=== PATIENT | female | born 1980 | race Caucasian/White ===

== ENCOUNTER → 2016-11-26 | Outpatient (CLI) | payer BC ==
[~2016-11-26] MED LIST: MTR600X PO; PRENTAB26 PO
== END ==
LOC: C.PAPS 11:06
PROVIDERS: ATTEND Obstetrics & Gynecology
DX: Z01.419 Encounter for gynecological examination (general) (routine) without abnormal findings (principal)

== ENCOUNTER → 2017-01-06 | Outpatient (CLI) | payer BC ==
--- NOTE | 2017-01-06 16:05 | MAMMOGRAPHY REPORT ---
BILATERAL FIRST EVER DIGITAL SCREENING MAMMOGRAM TOMOSYNTHESIS WITH CAD: 01/06/2017 CLINICAL HISTORY: Routine screening. Baseline exam. TECHNIQUE: Breast tomosynthesis in addition to standard 2D mammography was performed. Current study was also evaluated with a Computer Aided Detection (CAD) system. COMPARISON: No prior exams were available for comparison. BREAST COMPOSITION: The tissue of both breasts is extremely dense, which lowers the sensitivity of m ammography. FINDINGS: There are a few benign coarse, round and punctate microcalcifications scattered and loosely grouped throughout the breasts. No suspicious mass, architectural distortion or cluster of suspicio us microcalcifications is seen. IMPRESSION: ACR BI-RADS CATEGORY 1: NEGATIVE 1. There is no mammographic evidence of malignancy. A 1 year screening mammogram is recommended. 2. Given the extremely dense breasts and strong family history of breast cancer, if the patient's li fetime risk of developing breast cancer is at least 20%, she would qualify for additional screening w ith breast MRI. The patient will receive written notification of the results. Approximately 10% of breast cancers are not detected with mammography. A negative mammographic report should not delay biopsy if a clinically suggestive mass is present. Ivett Yuen M.D. ay/:01/06/2017 13:03:45 Social Science Research Assistant: Selam JONES(Fannie)(Mitchell)(TIMO), [facility] letter sent: Normal 1/2 BI-RADS Code: ACR BI-RADS Category 1: Negative
== END | disposition home or self-care (01) ==
LOC: C.MAMM 10:53
PROVIDERS: ATTEND Obstetrics & Gynecology
DX: Z12.31 Encounter for screening mammogram for malignant neoplasm of breast (principal)

== ENCOUNTER → 2017-05-11 | Outpatient (CLI) | payer BC ==
--- NOTE | 2017-05-11 19:05 | ECHOCARDIOGRAM REPORT ---
*NOTICE TO RECEIVING [employer]Y This information is strictly Confidential and protected under [place] law. [place] law prohibits you from making any further disclosure of this information unless further disclosure is expressly permitted by the written consent of the person to whom it pertains or is authorized by law. A general authorization for the release of medical or other information is not sufficient for this purpose. Hospital accepts no responsibility if the information is made available to any other person, INCLUDING THE PATIENT. Interpretation Summary * Name: SORAIDA CHAN Study Date: 05/11/2017 01:36 PM BP: 120/78 mmHg * Patient Location: [facility] HR: 68 * : 1980 (M/d/yyyy) Gender: Female Height: 63 in * Age: 37 yrs Ethnicity: [place] Weight: 125 lb * Ordering Physician: SHELLI Godoy. * Referring Physician: SHELLI Godoy. * Performed By: Karlie Arnett RDCS * * Reason For Study: ATYPICAL CHEST PAIN * BSA: 1.6 m2 * -- Conclusions -- * 1. Normal left ventricular size and systolic function. EF 60-65%. No regional wall motion abnormalities. No left ventricular hypertrophy. No significant diastolic dysfunction. * 2. No significant valvular abnormalities visualized. * 3. Normal estimated right ventricular systolic pressure. * 4. No prior study available for comparison. Procedure Details * A complete two-dimensional transthoracic echocardiogram was performed (2D, M-mode, Doppler and color flow Doppler). Left Ventricle * Normal left ventricular size and systolic function. EF 60-65%. No regional wall motion abnormalities. No left ventricular hypertrophy. No significant diastolic dysfunction. Right Ventricle * The right ventricle is normal in size and function. * The right ventricular systolic function is normal as assessed by tricuspid annular plane systolic excursion (TAPSE) (normal >1.5 cm). Atria * The left atrial size is normal. * Right atrial size is normal. * There is no evidence of atrial septal defect, but resolution does not allow assessment for a patent foramen ovale. Mitral Valve * The mitral valve leaflets appear normal. There is no evidence of stenosis, fluttering, or prolapse. * There is trace mitral regurgitation. Tricuspid Valve * The tricuspid valve is not well visualized, but is grossly normal. * There is no tricuspid stenosis. * There is mild tricuspid regurgitation. Aortic Valve * The aortic valve is trileaflet. * No hemodynamically significant valvular aortic stenosis. * No aortic regurgitation is present. Pulmonic Valve * The pulmonary valve is inadequately visualized, but the Doppler data is adequate for interpretation. * There is no pulmonic valvular stenosis. * There is no significant pulmonary regurgitation. Great Vessels * The aortic root is normal size. * Aortic arch of normal dimension. Pericardium/Pleural * There is no pericardial effusion. Great Vessels * Normal inferior vena cava size and collapsability with sniff indicates a normal right atrial pressure of 3 mmHg MMode 2D Measurements and Calculations IVSd 0.69 cm IVSs 1.3 cm LVIDd 4.1 cm LVIDs 2.5 cm LVPWd 0.87 cm LVPWs 1.2 cm IVS/LVPW 0.80 FS 40.7 % EDV(Teich) 76.2 ml ESV(Teich) 21.4 ml EF(Teich) 71.9 % EDV(cubed) 71.3 ml ESV(cubed) 14.9 ml EF(cubed) 79.1 % % IVS thick 90.1 % % LVPW thick 35.0 % LV mass(C)d 96.1 grams LV mass(C)dI 60.7 grams/m\S\2 LV mass(C)s 89.2 grams LV mass(C)sI 56.3 grams/m\S\2 SV(Teich) 54.8 ml SI(Teich) 34.6 ml/m\S\2 SV(cubed) 56.4 ml SI(cubed) 35.6 ml/m\S\2 Ao root diam 2.9 cm Ao root area 6.4 cm\S\2 LA dimension 2.6 cm asc Aorta Diam 2.5 cm LA/Ao 0.90 LVAd ap4 26.9 cm\S\2 LVLd ap4 8.2 cm EDV(MOD-sp4) 74.0 ml EDV(sp4-el) 74.6 ml LVAs ap4 14.6 cm\S\2 LVLs ap4 6.6 cm ESV(MOD-sp4) 29.0 ml ESV(sp4-el) 27.5 ml EF(MOD-sp4) 60.8 % EF(sp4-el) 63.1 % LVAd ap2 27.9 cm\S\2 LVLd ap2 8.4 cm EDV(MOD-sp2) 79.5 ml EDV(sp2-el) 78.8 ml LVAs ap2 14.9 cm\S\2 LVLs ap2 7.2 cm ESV(MOD-sp2) 27.4 ml ESV(sp2-el) 26.2 ml EF(MOD-sp2) 65.5 % EF(sp2-el) 66.8 % LVLd %diff 2.0 % EDV(MOD-bp) 76.4 ml LVLs %diff 8.2 % ESV(MOD-bp) 29.3 ml EF(MOD-bp) 61.6 % SV(MOD-sp4) 45.0 ml SI(MOD-sp4) 28.4 ml/m\S\2 SV(MOD-sp2) 52.1 ml SI(MOD-sp2) 32.9 ml/m\S\2 SV(MOD-bp) 47.1 ml SI(MOD-bp) 29.7 ml/m\S\2 SV(sp4-el) 47.1 ml SI(sp4-el) 29.7 ml/m\S\2 SV(sp2-el) 52.6 ml SI(sp2-el) 33.2 ml/m\S\2 Doppler Measurements and Calculations MV E max frank 128.1 cm/sec MV A max frank 69.2 cm/sec MV E/A 1.9 MV dec time 0.20 sec Ao V2 max 141.3 cm/sec Ao max PG 8.0 mmHg Ao max PG (full) 1.8 mmHg LV V1 max PG 6.2 mmHg LV V1 max 124.0 cm/sec TR max frank 251.5 cm/sec RVSP(TR) 28.3 mmHg RAP systole 3.0 mmHg
== END | disposition home or self-care (01) ==
LOC: C.CPL 13:31
PROVIDERS: ATTEND Internal Medicine
DX: R01.1 Cardiac murmur, unspecified (principal); R07.89 Other chest pain; Z82.49 Family history of ischemic heart disease and other diseases of the circulatory system; Z31.9 Encounter for procreative management, unspecified

== ENCOUNTER → 2017-06-23 | Outpatient (CLI) | payer OTHER | END | disposition home or self-care (01) | LOC: C.LABSPEC 16:22 | PROVIDERS: ATTEND Obstetrics & Gynecology | DX: O09.521 Supervision of elderly multigravida, first trimester (principal) ==

== ENCOUNTER → 2017-07-02 | Outpatient (CLI) | payer OTHER ==
[2017-07-02 16:36] LABS: BASO % 0.3 %; BASO ABS # 0.03 K/uL (0-0.2); EOS % 1.7 %; EOS ABS # 0.19 K/uL (0-0.5); HEMATOCRIT 36.5 % (37-47); IG# 0.03 K/uL (0.00-0.02); LYMPH % 23.8 %; LYMPH ABS # 2.69 K/uL (1.2-3.4); MEAN CELL VOLUME 90.1 fL (80-100); MEAN CORPUSCULAR HEMOGLOBIN 32.1 pg (25-34); MEAN CORPUSCULAR HGB CONC 35.6 g/dl (32-36); MEAN PLATELET VOLUME 11.7 fL (7.4-10.4); MONO % 5.9 %; MONO ABS # 0.67 K/uL (0.11-0.59); NEUT ABS # 7.68 K/uL (1.4-6.5); PLATELET COUNT 212 K/uL (130-400); RED CELL DISTRIBUTION WIDTH CV 12.3 % (11.5-14.5); RED CELL DISTRIBUTION WIDTH SD 40.4 fL (36.4-46.3); WHITE BLOOD COUNT 11.29 K/uL (4.8-10.8)
== END | disposition home or self-care (01) ==
LOC: C.LAB1850 14:55
PROVIDERS: ATTEND Obstetrics & Gynecology
DX: O09.521 Supervision of elderly multigravida, first trimester (principal); Z3A.00 Weeks of gestation of pregnancy not specified

== ENCOUNTER → 2017-07-06 | Outpatient (CLI) | payer OTHER | END | disposition home or self-care (01) | LOC: C.LAB1850 11:20 | PROVIDERS: ATTEND Obstetrics & Gynecology | DX: Z87.59 Personal history of other complications of pregnancy, childbirth and the puerperium (principal) ==

== ENCOUNTER → 2017-07-07 | Outpatient (CLI) | payer OTHER | END | disposition home or self-care (01) | LOC: C.LAB1850 14:47 | PROVIDERS: ATTEND Obstetrics & Gynecology | DX: R79.9 Abnormal finding of blood chemistry, unspecified (principal) ==

== ENCOUNTER → 2017-08-21 | Outpatient (CLI) | payer OTHER | END | disposition home or self-care (01) | LOC: C.LAB1850 16:08 | PROVIDERS: ATTEND Obstetrics & Gynecology | DX: O09.522 Supervision of elderly multigravida, second trimester (principal); R79.9 Abnormal finding of blood chemistry, unspecified ==

== ENCOUNTER → 2017-09-07 | Outpatient (CLI) | payer OTHER | END | disposition home or self-care (01) | LOC: C.LAB1850 07:22 | PROVIDERS: ATTEND Obstetrics & Gynecology | DX: O28.1 Abnormal biochemical finding on antenatal screening of mother (principal) ==

== ENCOUNTER → 2017-09-28 | Outpatient (CLI) | payer OTHER | END | disposition home or self-care (01) | LOC: C.LAB1850 09:47 | PROVIDERS: ATTEND Obstetrics & Gynecology | DX: R79.9 Abnormal finding of blood chemistry, unspecified (principal) ==

== ENCOUNTER → 2017-10-26 | Outpatient (CLI) | payer OTHER | END | disposition home or self-care (01) | LOC: C.LAB1850 13:36 | PROVIDERS: ATTEND Obstetrics & Gynecology | DX: R79.9 Abnormal finding of blood chemistry, unspecified (principal) ==

== ENCOUNTER → 2017-12-31 | Outpatient (CLI) | payer OTHER | END | disposition home or self-care (01) | LOC: C.LABSPEC 16:49 | PROVIDERS: ATTEND Obstetrics & Gynecology | DX: O09.523 Supervision of elderly multigravida, third trimester (principal) ==

== ENCOUNTER → 2018-01-07 | Outpatient (CLI) | payer OTHER | END | disposition home or self-care (01) | LOC: C.LAB1850 13:52 | PROVIDERS: ATTEND Obstetrics & Gynecology | DX: R79.9 Abnormal finding of blood chemistry, unspecified (principal) ==

== ENCOUNTER 2018-01-24 19:06 | Inpatient (IN) | payer OTHER ==
[~2018-01-24] VITALS: Ht 160 cm; Wt 71.8 kg
[2018-01-24] MEDS ORDERED: LACTATED RINGER'S 1000ML 1,000 ML IV PRN (20:22)
[2018-01-24] MEDS ORDERED: LACTATED RINGER'S 1000ML 1,000 ML IV ONE (20:22)
[2018-01-24] MEDS ORDERED: LACTATED RINGER'S 1000ML 1,000 ML IV SCH (20:22)
[2018-01-24 20:32] VITALS: Ht 160 cm; Wt 71.8 kg
[2018-01-24] MEDS ORDERED: CITRIC ACID/SODIUM CITRATE 15 ML UDC PO ONE (20:45)
[2018-01-24] MEDS ORDERED: CEFAZOLIN IV 2,000 MG in SYRINGE 0 ML IV SCH (21:00)
[2018-01-24] MEDS ORDERED: MoRPHine SULFATE PF 1 MG/ML 10 ML AMP/VIAL ONE (21:00)
[2018-01-24 21:02] LABS: BASO % 0.3 %; BASO ABS # 0.04 K/uL (0-0.2); EOS % 0.7 %; HEMATOCRIT 36.8 % (37-47); HEMOGLOBIN 12.7 g/dL (12.0-16.0); IG# 0.08 K/uL (0.00-0.02); LYMPH % 23.6 %; LYMPH ABS # 3.31 K/uL (1.2-3.4); MEAN CELL VOLUME 88.2 fL (80-100); MEAN CORPUSCULAR HEMOGLOBIN 30.5 pg (25-34); MEAN PLATELET VOLUME 12.5 fL (7.4-10.4); MONO % 5.3 %; MONO ABS # 0.74 K/uL (0.11-0.59); NEUT % 69.5 %; NEUT ABS # 9.75 K/uL (1.4-6.5); PLATELET COUNT 188 K/uL (130-400); RED CELL DISTRIBUTION WIDTH CV 13.5 % (11.5-14.5); RED CELL DISTRIBUTION WIDTH SD 43.5 fL (36.4-46.3); WHITE BLOOD COUNT 14.02 K/uL (4.8-10.8)
[2018-01-24 21:03] LABS: MEAN CORPUSCULAR HGB CONC 34.5 g/dl (32-36)
--- NOTE | 2018-01-24 21:09 | HISTORY & PHYSICAL EXAMINATION ---
DATE OF ADMISSION: 01/24/2018 ADMITTING DIAGNOSES: 1. Term . 2. Previous section. 3. Premature spontaneous rupture of membranes. ADMISSION HISTORY: The patient is a 37-year-old 3, para 1, with an EDC of January 23 by first trimester ultrasound, who is admitted at 40+ weeks gestational age with spontaneous rupture of membranes. Patient states membranes ruptured at approximately 1800 hours on day of delivery with subsequent onset of contractions. Patient denied vaginal bleeding. Patient's previous was a section for a nonreassuring heart rate tracing. Patient was being induced for gestational hypertension. Patient had been considering a during this , and a consent had been signed. was also remarkable for an anti-M antibody titer that was found on her initial OB visit. The patient was followed with monthly titers, which were nonexistent. Laboratory values for this show the following: She had a blood type of A positive, antibody positive as described above, hepatitis B negative, rubella immune. She had an elevated 1-hour Glucola at 16 weeks with normal glucose tolerance test at both 16 and 28 weeks. She had negative cell free DNA screening, a negative maternal serum AFP, and a negative third trimester beta strep culture. PAST MEDICAL HISTORY: OBSTETRICAL: As above. MEDICAL: None. SURGICAL: [place] teeth extraction. ALLERGIES: No known drug allergies. SOCIAL HISTORY: No smoking. FAMILY HISTORY: Noncontributory. REVIEW OF SYSTEMS: As per HPI. ADMISSION PHYSICAL EXAMINATION: GENERAL: Exam shows a gravid female, uncomfortable but in no acute distress. VITAL SIGNS: Blood pressure 150/90. Weight of 158. HEENT: Unremarkable. NECK: Supple. LUNGS: Clear. CARDIOVASCULAR: Heart with a regular rhythm and rate. GASTROINTESTINAL: Abdomen is gravid, vertex, positive heart tones, estimated weight of 7-1/2 pounds. PELVIC: Examination shows the cervix to be fingertip dilated, 90% effaced, -2 station, with gross rupture of membranes. EXTREMITIES: Examination shows no deep calf tenderness. NEUROLOGIC: Grossly intact. IMPRESSION: A 37-year-old 3, para 1 at 40+ weeks gestational age, previous section with spontaneous rupture of membranes. PLAN: Tracing is category 2 with moderate variability and accelerations. While the patient is sally every 3 minutes, she is remote from delivery. We have discussed options at this point including observation with possible augmentation of labor as needed. The patient is very reluctant to have any type of augmentation because of her previous experience with nonreassuring heart rate tracing. After discussing all the pros and cons with the patient, I have suggested and recommended a repeat low cervical transverse section. The risks, benefits, and alternatives to that surgery have been discussed. While the benefits will be delivery of the , the risks are bleeding, infection, inadvertent injury to bowel or bladder, blood clots in the leg with pulmonary embolism, readmission, reoperation. Patient understands this. The permit has been signed, and she wishes to proceed.
[2018-01-24 21:11] LABS: PTT PATIENT 23.8 SECONDS (21.0-31.0)
[2018-01-24] MEDS ORDERED: SODIUM CHLORIDE 0.9% 1000ML 1,000 ML IV PRN (21:11)
[2018-01-24] MEDS ORDERED: NALOXONE HCL INJ 0.08 MG in SYRINGE 1.8 ML IV PRN (21:11)
[2018-01-24] MEDS ORDERED: NALOXONE HCL INJ 1 MG in SODIUM CHLORIDE 0.9% 1000ML 1,000 ML IV PRN ×4 (21:11)
[2018-01-24] MEDS ORDERED: LACTATED RINGER'S 1000ML 500 ML IV PRN (21:11)
[2018-01-24] MEDS ORDERED: MoRPHine SULFATE PF 1 MG/ML 10 ML AMP/VIAL EPI PRN (21:15)
[2018-01-24] MEDS ORDERED: NO NARCOTICS OR SEDATIVES SCH (21:15)
[2018-01-24] MEDS ORDERED: PHENYLEPHRINE 100MCG/ML 5ML SYR IV PRN (21:15)
[2018-01-24] MEDS ORDERED: DiphenhydrAMINE HCL 50 MG/ML VIAL IV PRN (21:15)
[2018-01-24] MEDS ORDERED: ATROPINE SULFATE 0.1 MG/ML 5ML SYR IV PRN (21:15)
[2018-01-24] MEDS ORDERED: ONDANSETRON INJ 2 MG/ML 2 ML VIAL IV PRN ×2 (21:15)
[2018-01-24] MEDS ORDERED: NALBUPHINE HCL INJ 10 MG/ML 1ML AMP IV PRN (21:15)
[2018-01-24] MEDS ORDERED: PROMETHAZINE HCL INJ 12.5 MG in SODIUM CHLORIDE 0.9% 50ML 50 ML IV PRN ×4 (21:15)
[2018-01-24] MEDS ORDERED: MEPERIDINE HCL 25 MG/ML CARP IV PRN ×2 (21:15)
[2018-01-24] MEDS ORDERED: NALOXONE HCL 0.4 MG/1 ML VIAL/CARP IV PRN (21:15)
[2018-01-24] MEDS ORDERED: EpHEDrine SULFATE INJ 50 MG/ML AMP IV PRN ×2 (21:15)
[2018-01-24] MEDS ORDERED: KETOROLAC TROMETHAMINE 30 MG/ML VIAL IV. PRN ×2 (21:15)
[2018-01-24 21:31] LABS: ALBUMIN 2.7 gm/dl (3.4-5.0); ALKALINE PHOSPHATASE 190 U/L (45-117); ALT/SGPT 14 U/L (12-78); AST/SGOT 20 U/L (15-37); CREATININE 0.76 mg/dl (0.60-1.20); URIC ACID 7.2 mg/dl (2.6-7.2)
[2018-01-24] MEDS ORDERED: ONDANSETRON INJ 2 MG/ML 2 ML VIAL ONE (22:02)
[2018-01-24] MEDS ORDERED: METOCLOPRAMIDE HCL INJ 5 MG/ML 2 ML VIAL ONE (22:02)
[2018-01-24] MEDS ORDERED: OXYTOCIN INJ 10 UNITS/ML VIAL ONE ×3 (22:02→22:19)
[2018-01-24] MEDS ORDERED: PROPOFOL IV EMULSION 10 MG/ML 20 ML VIAL ONE (22:02)
[2018-01-24] MEDS ORDERED: SUCCINYLCHOLINE CHLORIDE 20 MG/ML 10 ML VIAL IV ONE (22:02)
[2018-01-24] MEDS ORDERED: EpHEDrine SULFATE 50MG/5ML SYR ONE (22:02)
--- NOTE | 2018-01-24 22:21 | [facility] Post Operative Brief Note ---
Immediate Operative Summary Operative Date Jan 24, 2018. 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
[2018-01-24] MEDS ORDERED: LANOLIN OINT EXT PRN (22:30)
[2018-01-24] MEDS ORDERED: SUPERCREAM 0.870 % 15GM JAR EXT PRN (22:30)
[2018-01-24] MEDS ORDERED: HYDROCORTISONE ACETATE 25 MG SUPP PR PRN (22:30)
[2018-01-24] MEDS ORDERED: BENZOCAINE 20% AER SPR 82.5 GM CAN EXT PRN (22:30)
--- NOTE | 2018-01-24 22:45 | OPERATIVE REPORT ---
DATE OF OPERATION: 01/24/2018 PREOPERATIVE DIAGNOSES: 1. Term . 2. Previous section. 3. Premature rupture of membranes. POSTOPERATIVE DIAGNOSES: 1. Term . 2. Previous section. 3. Premature rupture of membranes. PROCEDURE PERFORMED: Repeat low cervical transverse section. SURGEON: Krystian Ovalle MD ANESTHESIA: Spinal. FINDINGS: Viable female infant with Apgars of 8 and 9, weight of 8 pounds 10 ounces. Arterial and venous cord gases are pending. Normal-appearing tubes and ovaries bilaterally. PROCEDURE IN DETAIL: The patient was taken to the operating room and after spinal anesthesia, he was placed in supine position and draped and prepped in the usual fashion. Pfannenstiel-type incision through previous surgical scar was made. Underlying subcutaneous tissue was dissected down to the ventral abdominal fascia, which was nicked and opened in a horizontal manner. Preperitoneal fascia was dissected away until the peritoneal cavity was entered and opened in a vertical manner. Bladder blade was placed. The peritoneum overlying the uterus was elevated, opened in a semi-lunar fashion, the inferior margin of which was taken down creating the bladder flap. The uterus was entered sharply and extended in a manual fashion. A viable female infant with description as above was delivered. Cord was clamped and cut and passed off to pediatrics who was in attendance for the delivery. Cord gases, cord blood samples were obtained. The placenta was delivered spontaneously. The uterus was exteriorized and the uterine cavity was wiped clean of any residual blood tissue and/or clot. The uterine incision was then closed with 2 layers of 4-0 Vicryl, the first a running locking stitch, the second an imbricating stitch. Hemostasis achieved. The uterus was returned to the pelvic cavity. Pericolic gutters were cleared bilaterally of any blood tissue and/or clot. Inspection of the uterine incision showed hemostasis. Sponge and needle count were correct. The rectus muscle was then plicated in the midline with a running 2-0 Vicryl stitch. The fascia was closed laterally with a running 0 Vicryl suture. The subcutaneous tissue was irrigated with warm saline and the skin incision was closed with a 4-0 Monocryl subcuticular suture. Sterile dressing was applied. The patient was taken to the recovery room in satisfactory condition. I attest to the content of the Intraoperative Record and any orders documented therein. Any exception s are noted below.
[2018-01-25] VITALS (18 sets, daily range): BP systolic 131–152; BP diastolic 79–93; PULSE 60–80; TEMP 36.6–36.9; O2SAT 95–98
[2018-01-25] MEDS: OXYTOCIN INJ 20 UNITS in LACTATED RINGER'S 1000ML 1,000 ML IV SCH ×2 (01:21→09:40)
[2018-01-25] MEDS ORDERED: CEFAZOLIN IV 2,000 MG in DEXTROSE 5% 50ML 50 ML IV SCH (06:00)
--- NOTE | 2018-01-25 06:55 | Progress Note ---
Subjective Jan 25, 2018. Subjective conversation w/ patient, physical exam Ambulation: ambulating normally Voiding: underwood catheter in place Passing Gas: Yes Diet Tolerance: Clear Liquids (has not recieved any yet. no n/v) Lochia: Small Feeding Type: Breast Feeding Pain: 2/10, improving Review of Systems Constitutional: No fever, No chills, No sweats Respiratory: No cough, No sputum, No wheezing Cardiac: No chest pain, No palpitations Abdomen: No pain, No nausea, No vomiting Female : No dysuria Objective Vital Signs Date Time Temp Pulse Resp B/P (MAP) Pulse Ox O2 Delivery O2 Flow Rate FiO2 01/25/18 06:11 14 96 01/25/18 05:46 16 96 01/25/18 04:38 16 95 01/25/18 03:10 36.7 74 16 137/83 (101) 98 Room Air 01/25/18 03:10 16 98 01/25/18 02:10 16 98 01/25/18 02:10 36.7 80 16 145/84 (104) 98 Room Air 01/25/18 01:10 36.9 79 16 152/85 (107) 98 Room Air 01/25/18 01:10 98 Room Air 01/25/18 01:10 16 98 01/25/18 01:10 98 Room Air Physical Exam General Appearance: WELL-APPEARING, NO APPARENT DISTRESS Respiratory/Chest: chest non-tender, normal breath sounds Cardiovascular: regular rate, rhythm, no murmur Abdomen: normal bowel sounds Fundus: Firm, Relation to Umbilicus (below) Incision Description: Clean, Dry & Intact Extremities: non-tender, no calf tenderness Laboratory Results Last 24 Hours Test 01/24/18 20:42 01/25/18 06:43 White Blood Count 14.02 K/uL Red Blood Count 4.17 M/uL Hemoglobin 12.7 g/dL Hematocrit 36.8 % Mean Corpuscular Volume 88.2 fL Mean Corpuscular Hemoglobin 30.5 pg Mean Corpuscular Hemoglobin Concent 34.5 g/dl Platelet Count 188 K/uL Mean Platelet Volume 12.5 fL Neutrophils (%) (Auto) 69.5 % Lymphocytes (%) (Auto) 23.6 % Monocytes (%) (Auto) 5.3 % Eosinophils (%) (Auto) 0.7 % Basophils (%) (Auto) 0.3 % Neutrophils # (Auto) 9.75 K/uL Lymphocytes # (Auto) 3.31 K/uL Monocytes # (Auto) 0.74 K/uL Eosinophils # (Auto) 0.10 K/uL Basophils # (Auto) 0.04 K/uL RDW Standard Deviation 43.5 fL RDW Coefficient of Variation 13.5 % Immature Granulocyte % (Auto) 0.6 % Immature Granulocyte # (Auto) 0.08 K/uL Prothrombin Time 10.2 SECONDS Prothromb Time International Ratio 1.0 Activated Partial Thromboplast Time 23.8 SECONDS Partial Thromboplastin Ratio 0.9 Creatinine 0.76 mg/dl Est Creatinine Clear Calc Drug Dose 94.4 ml/min Estimated GFR () 114.5 Estimated GFR (Non- 98.8 Uric Acid 7.2 mg/dl Total Bilirubin 0.3 mg/dl Direct Bilirubin < 0.1 mg/dl Aspartate Amino Transf (AST/SGOT) 20 U/L Alanine Aminotransferase (ALT/SGPT) 14 U/L Alkaline Phosphatase 190 U/L Total Protein 7.0 gm/dl Albumin 2.7 gm/dl Medications Current Inpatient Medications Medications (Trade) Dose Ordered Sig/[place] Route Start Time Stop Time Status Last Admin Dose Admin Lactated Ringer's 1,000 ml @ 125 mls/hr Q8H IV 01/24/18 20:22 01/26/18 20:21 Lactated Ringer's 1,000 ml @ 999 mls/hr Q1H1M PRN IV 01/24/18 20:22 02/23/18 20:21 Naloxone HCl (Narcan Inj) 0.1 mg UD PRN IV 01/24/18 21:15 01/25/18 14:00 Diphenhydramine HCl (Benadryl Inj) 12.5 mg Q6H PRN IV 01/24/18 21:15 01/25/18 14:00 Nalbuphine HCl (Nubain Inj) 5 mg Q10M PRN IV 01/24/18 21:15 01/25/18 14:00 Naloxone HCl 1 mg/ Sodium Chloride 1,002.5 ml @ 50 mls/hr Q20H3M PRN IV 01/24/18 21:11 01/25/18 14:00 Ondansetron HCl (Zofran Inj) 4 mg Q6H PRN IV 01/24/18 21:15 01/25/18 14:00 Promethazine HCl 12.5 mg/Sodium Chloride 50.5 ml @ 200 mls/hr Q6H PRN IV 01/24/18 21:15 01/25/18 14:00 Naloxone HCl 1 mg/ Sodium Chloride 1,002.5 ml @ 50 mls/hr Q20H3M PRN IV 01/24/18 21:11 01/25/18 14:00 Ketorolac Tromethamine (Toradol Inj) 30 mg Q6H PRN IV. 01/24/18 21:15 01/25/18 14:00 Meperidine HCl (Demerol Inj) 25 mg Q15M PRN IV 01/24/18 21:15 01/25/18 14:00 Miscellaneous Information (Dc Intraspinal Morphine) 1 ea ONE N/A 01/25/18 14:00 01/25/18 14:01 Miscellaneous Information (No Narcotics Or Sedatives) 1 ea UD N/A 01/24/18 21:15 01/25/18 14:00 Naloxone HCl 0.08 mg/Syringe 2 ml @ 1 mls/min Q2M PRN IV 01/24/18 21:11 01/25/18 14:00 Lactated Ringer's 500 ml @ 999 mls/hr Q31M PRN IV 01/24/18 21:11 01/25/18 14:00 Ephedrine Sulfate (EpHEDrine SULFATE INJ) 10 mg Q5M PRN IV 01/24/18 21:15 01/25/18 14:00 Morphine Sulfate (Duramorph Pf Inj) TODAY PRN EPI 01/24/18 21:15 Sodium Chloride 1,000 ml @ 15 mls/hr Q24H PRN IV 01/24/18 21:11 01/25/18 14:00 Oxytocin 20 units/ Lactated Ringer's 1,002 ml @ 125 mls/hr Q8H1M IV 01/24/18 22:21 01/25/18 14:22 01/25/18 01:21 125 MLS/HR Ketorolac Tromethamine (Toradol Inj) 30 mg Q6H PRN IV. 01/25/18 14:00 01/30/18 13:59 Oxycodone/ Acetaminophen (Percocet 5-325mg Tab) 1 tab Q4H PRN PO 01/25/18 14:00 02/08/18 13:59 Oxycodone/ Acetaminophen (Percocet 5-325mg Tab) 2 tab Q4H PRN PO 01/25/18 14:00 02/08/18 13:59 Ibuprofen (Motrin Tab) 600 mg Q4H PRN PO 01/24/18 22:30 02/23/18 22:29 Ondansetron HCl (Zofran Inj) 4 mg Q4H PRN IV 01/25/18 14:00 02/24/18 13:59 Prenat Multivit/ Lovilia/Iron/Folic Ac ( Vitamin Tab) 1 tab DAILY PO 01/25/18 08:00 02/24/18 07:59 Magnesium Hydroxide (Milk Of Magnesia Susp) 30 ml HS PO 01/25/18 22:00 02/24/18 21:59 Diphtheria/ Pertussis/Tetanus Vacc (Adacel Inj) 0.5 ml ONCE ONCE IM. 01/25/18 09:00 01/25/18 09:01 Ferrous Sulfate (Feosol Tab) 325 mg DAILY PO 01/25/18 08:00 02/24/18 07:59 Cocaine HCl (Supercream 0.870% Cr) BID PRN EXT 01/24/18 22:30 02/07/18 22:29 Lanolin (Lanolin Oint) PRN PRN EXT 01/24/18 22:30 02/23/18 22:29 Hydrocortisone Acetate (Anusol Hc Supp) 25 mg BID PRN [place] 01/24/18 22:30 02/23/18 22:29 Benzocaine (Dermoplast Aero Spr) 1 appln PRN PRN EXT 01/24/18 22:30 02/23/18 22:29 Diphenhydramine HCl (Benadryl Cap) 25 mg QID PRN PO 01/25/18 14:00 02/24/18 13:59 Diphenhydramine HCl (Benadryl Inj) 25 mg QID PRN IV 01/25/18 14:00 02/24/18 13:59 Senna (Senokot Tab) 17.2 mg HS PO 01/25/18 22:00 02/24/18 21:59 Assessment and Plan Problem List Medical Problems: (1) PROM (premature rupture of membranes) Status: Acute Post-Op Day#: 1 Continue Routine Care: 37 yo POD1 s/p LTCS -AFVSS, Pt doing well resting comfortably -no si/sx of anemia -Plan is to breast feed -Tolerating regular diet, no n/v -Continue to encourage ambulation -Routine Post-OP Care Resident Physician Supervision Note: I interviewed and examined the patient. Discussed with Dr. Stafford and agree with findings and plan as documented in the note. Any exceptions or clarifications are listed here: Discussed surgery and findings with patient. Routine post-op care. Documented By: Krystian Ovalle Resident Tracking Resident Involvement: Resident Care Provided Care Provided: Adult Hospital Medicine
[2018-01-25 07:24] LABS: HEMATOCRIT 31.7 % (37-47); MEAN CELL VOLUME 86.8 fL (80-100); MEAN CORPUSCULAR HEMOGLOBIN 30.1 pg (25-34); MEAN CORPUSCULAR HGB CONC 34.7 g/dl (32-36); MEAN PLATELET VOLUME 12.5 fL (7.4-10.4); PLATELET COUNT 128 K/uL (130-400); RED CELL DISTRIBUTION WIDTH CV 13.5 % (11.5-14.5); RED CELL DISTRIBUTION WIDTH SD 43.1 fL (36.4-46.3); WHITE BLOOD COUNT 18.41 K/uL (4.8-10.8)
[2018-01-25 07:26] LABS: BASO % 0.1 %; BASO ABS # 0.02 K/uL (0-0.2); EOS % 0.3 %; EOS ABS # 0.05 K/uL (0-0.5); IG# 0.06 K/uL (0.00-0.02); LYMPH % 12.3 %; LYMPH ABS # 2.27 K/uL (1.2-3.4); MONO % 5.4 %; NEUT % 81.6 %; NEUT ABS # 15.01 K/uL (1.4-6.5)
[2018-01-25] MEDS: PRENATAL VITAMIN TAB PO SCH (07:41)
[2018-01-25] MEDS: FERROUS SULFATE 325 MG TAB PO SCH (07:41)
--- NOTE | 2018-01-25 07:42 | Discharge Instructions ---
Discharge Instructions Date of Service Jan 25, 2018. Admission Reason for Admission: Check Rupture Discharge Discharge Diagnosis / Problem: Discharge Goals Goal(s): Routine recovery after Medications Continue Dispensed Medications: supercream, dermaplast, tucks Activity Recommendations Activity Limitations: per Instructions/Follow-up section . Instructions / Follow-Up Instructions / Follow-Up ACTIVITY RECOMMENDATIONS: * Gradual return to full activity over the next 2-3 weeks. * No lifting - nothing heavier than baby over the next 2-3 weeks. * Do not engage in vigorous exercise, sexual activity or sports until cleared by your physician. * Do not drive or operate any motorized equipment until cleared by your physician. * You may shower/bathe daily. MEDICATIONS: For discomfort or pain, you may use Acetaminophen (Tylenol), Ibuprofen (Advil), or Naproxen (Aleve) following the package directions. For constipation you may use Colace following the package directions. BREAST CARE: If you are not breast feeding: * Wear a supportive bra 24 hours a day for one to two weeks. * Avoid stimulating your breasts and nipples as much as possible during the first few weeks after delivery. * When taking a shower, have the warm water hit your back, not breasts. * When your breasts feel full, apply ice packs. Usually three to four times a day helps ease the discomfort. * Take a mild pain medication (Tylenol / Motrin) when you are uncomfortable. If breast feeding: * Use breast milk to lubricate nipples. Lansinoh cream may be used for sore nipples. You do not need to remove cream prior to breast feeding. If using a different brand of cream, check the label for directions regarding removal of cream prior to nursing. * Wear a supportive bra. * If having problems with breasts or breast feeding, call a talent development consultant or your health care provider. SPECIAL CARE INSTRUCTIONS: When you are discharged from the hospital, it is important for you to follow the instructions listed below: * During the first week at home, you should be able to care for yourself and your baby. In addition, the usual light household activities are encouraged. * Limit your activities to the way you feel. Do not try to clean the house or move furniture. Be sensible. * If you actively engage in sports and have done so up until the time of your delivery, you may resume these activities as soon as you feel able. This may take up to one month or even longer. Use good judgment. * Continue to take your vitamins for at least six weeks after the of your baby. * Your diet need not be limited unless you were on a special diet before your delivery. Breast-feeding mothers need around 2500 calories per day and at least 64-80 ounces of fluid per day (8 to 10 glasses). * You should eat foods from the four major food groups. Crash diets or fad diets are to be avoided. Eating lean meats, fresh fruits and vegetables, low-fat dairy products, high fiber foods and a regular exercise program, will help you get back to your pre- weight without putting your health at risk. * Constipation is sometimes a problem after delivery. Take a mild laxative as needed. If breast feeding, Milk of Magnesia is acceptable to use. You may use a suppository or Fleets enema. * A daily shower or tub bath is suggested. Wash incision daily with warm soapy water and pat dry. It doesn't need to be covered unless drainage is present. * A bloody vaginal discharge will usually continue until around four weeks . A small amount of bleeding may continue for as long as six weeks. Vaginal discharge changes from the bright red bleeding after delivery to pink then brownish and finally yellowish-pink before becoming white and disappearing. * Bleeding may increase with activity. Your first period may come in 4-8 weeks. If you are breast feeding, your period may be delayed even longer. * [place] (sex) can begin whenever both you and your partner feel comfortable and do not have any form of genital infection. It is recommended that you wait at least six weeks for internal and external healing to occur. If you have questions, please talk to your health care practitioner. A condom should be used to prevent infection and . * Foreplay, gentle intercourse and lubrication is very important the first several times to prevent pain. A water-based lubricant such as K-Y jelly or Astroglide may be used. * If you have RH negative blood and your baby is RH positive, you will receive RHOGAM by injection prior to discharge. The nurse will give you a card to keep with you that has the date and place that you received RHOGAM after delivery. * During your care, you had a Rubella screen done to check for the presence of rubella antibodies in your blood. If your test was negative, you will receive a Rubella vaccine prior to discharge. This vaccine may cause a fever, soreness at the injection site and flu-like symptoms. If these symptoms persist, notify your health care practitioner. is not advised for one month after a Rubella vaccine. * Verbalizes understanding of car seat law as reviewed with patient nursing. * Car Seat hand-out given and reviewed with patient by nursing. * Shaken baby information reviewed with patient by nursing. Call you doctor if: * Heavy bleeding (saturating several pads an hour) or passing clots the size of your fist. * A fever >101 degrees F (38.3 degrees C) on two occasions four hours apart and /or chills. * Unusual pain in the pelvic or vaginal areas. * Call the doctor for any increased redness, drainage or swelling around the incision and any pain unrelieved by prescribed pain medication. * "Baby Blues" lasting longer than two weeks. If you have any questions or concerns, call your health care practitioner at . FOLLOW UP VISIT: * Please call the office at to schedule a 6 week examination. It is important you keep this appointment. It is important for you to make arrangements for either yearly or twice yearly check-ups thereafter. Current Hospital Diet Patient's current hospital diet: Clear Liquid Diet Discharge Diet Recommended Diet: Regular OB Diet Procedures Procedures Performed: 1) Repeat low CAESAREAN SECTION DEL VIABLE FEMALE AT 2152 Pending Studies Studies pending at discharge: no Medical Emergencies . Who to Call and When: Medical Emergencies: If at any time you feel your situation is an emergency, please call 911 immediately. . Non-Emergent Contact Non-Emergency issues call your: Local Company Flatbed Truck Driver Call Non-Emergent contact if: temperature is above 100.5 . . "Provider Documentation" section prepared by Jamal Stafford. . Resident Tracking Resident Involvement: Resident Care Provided Care Provided: Adult Hospital Medicine
[2018-01-25] MEDS ORDERED: DIPHTHERIA/TETANUS/PERTUSSIS 0.5 ML SYR/VIAL IM. ONE (09:00)
[2018-01-25] MEDS ORDERED: DC INTRASPINAL MORPHINE SCH (14:00)
[2018-01-25] MEDS ORDERED: DiphenhydrAMINE HCL 50 MG/ML VIAL IV PRN (14:00)
[2018-01-25] MEDS ORDERED: ONDANSETRON INJ 2 MG/ML 2 ML VIAL IV PRN (14:00)
[2018-01-25] MEDS ORDERED: OXYCODONE/ACETAMINOPHEN 5-325 TAB PO PRN ×2 (14:00)
[2018-01-25] MEDS ORDERED: KETOROLAC TROMETHAMINE 30 MG/ML VIAL IV. PRN (14:00)
[2018-01-25] MEDS: IBUPROFEN 600 MG TAB PO PRN (19:45)
[2018-01-25] MEDS: SENNA 8.6 MG TAB PO SCH ×2 (22:00→22:11)
[2018-01-25] MEDS: MAGNESIUM HYDROXIDE SUSP 30 ML UDC PO SCH (22:00)
[2018-01-26] VITALS (10 sets, daily range): BP systolic 127–171; BP diastolic 78–95; PULSE 58–67; TEMP 36.3–36.7; O2SAT 95–97
--- NOTE | 2018-01-26 06:51 | Progress Note ---
Subjective Jan 26, 2018. Subjective conversation w/ patient, physical exam Ambulation: ambulating normally Voiding: no voiding problems, underwood catheter in place Passing Gas: Yes Diet Tolerance: Regular Diet Lochia: Small Feeding Type: Breast Feeding Pain: improves with anagelsia Review of Systems Constitutional: No fever, No chills, No sweats Respiratory: No cough, No sputum, No wheezing Cardiac: No chest pain, No palpitations Abdomen: No pain, No nausea, No vomiting Female : No dysuria Objective Vital Signs Date Time Temp Pulse Resp B/P (MAP) Pulse Ox O2 Delivery O2 Flow Rate FiO2 01/26/18 04:45 59 132/85 (101) 01/26/18 01:17 95 Room Air 01/26/18 01:17 36.7 17 146/90 (108) 95 Room Air 01/25/18 19:50 36.8 67 16 150/93 (112) 97 Room Air 01/25/18 15:10 96 Room Air 01/25/18 15:10 36.8 64 16 135/84 (101) 96 Room Air 01/25/18 14:45 18 97 01/25/18 13:45 18 97 01/25/18 12:45 36.8 66 16 131/79 (96) 96 Room Air 01/25/18 12:45 16 96 01/25/18 11:15 18 97 01/25/18 10:15 18 98 01/25/18 09:15 16 97 01/25/18 08:35 16 98 01/25/18 08:00 36.6 63 18 138/83 (101) 97 Room Air 01/25/18 07:45 16 98 01/25/18 07:45 Room Air Physical Exam General Appearance: WELL-APPEARING, NO APPARENT DISTRESS Respiratory/Chest: chest non-tender, normal breath sounds Cardiovascular: regular rate, rhythm, no murmur Abdomen: normal bowel sounds Fundus: Firm, Relation to Umbilicus (below) Incision Description: Clean, Dry & Intact Extremities: non-tender, no calf tenderness Laboratory Results Last 24 Hours Test 01/26/18 06:07 Medications Current Inpatient Medications Medications (Trade) Dose Ordered Sig/[place] Route Start Time Stop Time Status Last Admin Dose Admin Lactated Ringer's 1,000 ml @ 125 mls/hr Q8H IV 01/24/18 20:22 01/26/18 20:21 Lactated Ringer's 1,000 ml @ 999 mls/hr Q1H1M PRN IV 01/24/18 20:22 02/23/18 20:21 Morphine Sulfate (Duramorph Pf Inj) TODAY PRN EPI 01/24/18 21:15 Ketorolac Tromethamine (Toradol Inj) 30 mg Q6H PRN IV. 01/25/18 14:00 01/30/18 13:59 Oxycodone/ Acetaminophen (Percocet 5-325mg Tab) 1 tab Q4H PRN PO 01/25/18 14:00 02/08/18 13:59 Oxycodone/ Acetaminophen (Percocet 5-325mg Tab) 2 tab Q4H PRN PO 01/25/18 14:00 02/08/18 13:59 Ibuprofen (Motrin Tab) 600 mg Q4H PRN PO 01/24/18 22:30 02/23/18 22:29 01/25/18 19:45 600 MG Ondansetron HCl (Zofran Inj) 4 mg Q4H PRN IV 01/25/18 14:00 02/24/18 13:59 Prenat Multivit/ [place]/Iron/Folic Ac ( Vitamin Tab) 1 tab DAILY PO 01/25/18 08:00 02/24/18 07:59 01/25/18 07:41 1 TAB Magnesium Hydroxide (Milk Of Magnesia Susp) 30 ml HS PO 01/25/18 22:00 02/24/18 21:59 Ferrous Sulfate (Feosol Tab) 325 mg DAILY PO 01/25/18 08:00 02/24/18 07:59 01/25/18 07:41 325 MG Cocaine HCl (Supercream 0.870% Cr) BID PRN EXT 01/24/18 22:30 02/07/18 22:29 Lanolin (Lanolin Oint) PRN PRN EXT 01/24/18 22:30 02/23/18 22:29 Hydrocortisone Acetate (Anusol Hc Supp) 25 mg BID PRN [place] 01/24/18 22:30 02/23/18 22:29 Benzocaine (Dermoplast Aero Spr) 1 appln PRN PRN EXT 01/24/18 22:30 02/23/18 22:29 Diphenhydramine HCl (Benadryl Cap) 25 mg QID PRN PO 01/25/18 14:00 02/24/18 13:59 Diphenhydramine HCl (Benadryl Inj) 25 mg QID PRN IV 01/25/18 14:00 02/24/18 13:59 Senna (Senokot Tab) 17.2 mg HS PO 01/25/18 22:00 02/24/18 21:59 01/25/18 22:11 17.2 MG Assessment and Plan Problem List Medical Problems: (1) PROM (premature rupture of membranes) Status: Acute Post-Op Day#: 2 Continue Routine Care: 37 yo POD2 s/p LCT C/S -AFVSS, Pt doing well resting comfortably -no si/sx of anemia Hgb 10.9 from 12.7 preop -Plan is to breast feed -Tolerating regular diet, no n/v -Continue to encourage ambulation -Routine Post Op care Resident Physician Supervision Note: I interviewed and examined the patient. Discussed with Dr. Stafford and agree with findings and plan as documented in the note. Any exceptions or clarifications are listed here: Doing well. Plan routine care. Documented By: Petrona Pompa Resident Tracking Resident Involvement: Resident Care Provided Care Provided: Adult Hospital Medicine
[2018-01-26 07:00] LABS: HEMATOCRIT 33.2 % (37-47); HEMOGLOBIN 10.9 g/dL (12.0-16.0)
[2018-01-26] MEDS: PRENATAL VITAMIN TAB PO SCH (07:10)
[2018-01-26] MEDS: FERROUS SULFATE 325 MG TAB PO SCH (07:10)
[2018-01-26] MEDS: IBUPROFEN 600 MG TAB PO PRN ×3 (07:10→19:23)
[2018-01-26] MEDS: SENNA 8.6 MG TAB PO SCH (21:47)
[2018-01-26] MEDS: MAGNESIUM HYDROXIDE SUSP 30 ML UDC PO SCH (21:47)
[2018-01-27 03:30] VITALS: BP 155/92
[2018-01-27] MEDS: IBUPROFEN 600 MG TAB PO PRN ×2 (03:36→08:16)
--- NOTE | 2018-01-27 07:08 | Progress Note ---
Subjective Jan 27, 2018. Subjective conversation w/ patient, physical exam Ambulation: ambulating normally Voiding: no voiding problems (straight cathed yesterday evening at 21:00, since then doing well) Passing Gas: Yes Diet Tolerance: Regular Diet Lochia: Small Feeding Type: Breast Feeding Pain: 1/10 improving Review of Systems Constitutional: No fever, No chills, No sweats Respiratory: No cough, No sputum, No wheezing Cardiac: No chest pain, No palpitations Abdomen: No pain, No nausea, No vomiting Female : No dysuria Objective Vital Signs Date Time Temp Pulse Resp B/P (MAP) Pulse Ox O2 Delivery O2 Flow Rate FiO2 01/27/18 03:30 155/92 (113) 01/26/18 23:15 36.7 58 18 147/89 (108) Room Air 01/26/18 20:25 151/91 (111) 01/26/18 19:50 36.5 61 18 171/95 (120) Room Air 01/26/18 19:50 Room Air 01/26/18 16:16 155/90 (111) 01/26/18 16:15 36.6 67 18 147/94 (111) 97 Room Air 01/26/18 12:07 127/78 (94) 01/26/18 12:06 145/86 (105) 01/26/18 08:30 Room Air 01/26/18 07:42 36.3 63 20 139/88 (105) 97 Room Air Physical Exam General Appearance: WELL-APPEARING, NO APPARENT DISTRESS Respiratory/Chest: chest non-tender, no respiratory distress Cardiovascular: regular rate, rhythm, no murmur Abdomen: normal bowel sounds Fundus: Firm, Relation to Umbilicus (below) Incision Description: Clean, Dry & Intact Extremities: non-tender, no calf tenderness Laboratory Results Date Time Temp Pulse Resp B/P (MAP) Pulse Ox O2 Delivery O2 Flow Rate FiO2 01/27/18 03:30 155/92 (113) 01/26/18 23:15 36.7 58 18 147/89 (108) Room Air 01/26/18 20:25 151/91 (111) 01/26/18 19:50 36.5 61 18 171/95 (120) Room Air 01/26/18 19:50 Room Air 01/26/18 16:16 155/90 (111) 01/26/18 16:15 36.6 67 18 147/94 (111) 97 Room Air 01/26/18 12:07 127/78 (94) 01/26/18 12:06 145/86 (105) 01/26/18 08:30 Room Air 01/26/18 07:42 36.3 63 20 139/88 (105) 97 Room Air Medications Current Inpatient Medications Medications (Trade) Dose Ordered Sig/[place] Route Start Time Stop Time Status Last Admin Dose Admin Lactated Ringer's 1,000 ml @ 999 mls/hr Q1H1M PRN IV 01/24/18 20:22 02/23/18 20:21 Morphine Sulfate (Duramorph Pf Inj) TODAY PRN EPI 01/24/18 21:15 Ketorolac Tromethamine (Toradol Inj) 30 mg Q6H PRN IV. 01/25/18 14:00 01/30/18 13:59 Oxycodone/ Acetaminophen (Percocet 5-325mg Tab) 1 tab Q4H PRN PO 01/25/18 14:00 02/08/18 13:59 Oxycodone/ Acetaminophen (Percocet 5-325mg Tab) 2 tab Q4H PRN PO 01/25/18 14:00 02/08/18 13:59 Ibuprofen (Motrin Tab) 600 mg Q4H PRN PO 01/24/18 22:30 02/23/18 22:29 01/27/18 03:36 600 MG Ondansetron HCl (Zofran Inj) 4 mg Q4H PRN IV 01/25/18 14:00 02/24/18 13:59 Prenat Multivit/ [place]/Iron/Folic Ac ( Vitamin Tab) 1 tab DAILY PO 01/25/18 08:00 02/24/18 07:59 01/26/18 07:10 1 TAB Magnesium Hydroxide (Milk Of Magnesia Susp) 30 ml HS PO 01/25/18 22:00 02/24/18 21:59 01/26/18 21:47 30 ML Ferrous Sulfate (Feosol Tab) 325 mg DAILY PO 01/25/18 08:00 02/24/18 07:59 01/26/18 07:10 325 MG Cocaine HCl (Supercream 0.870% Cr) BID PRN EXT 01/24/18 22:30 9/18 22:29 Lanolin (Lanolin Oint) PRN PRN EXT 01/24/18 22:30 02/23/18 22:29 Hydrocortisone Acetate (Anusol Hc Supp) 25 mg BID PRN [place] 01/24/18 22:30 02/23/18 22:29 Benzocaine (Dermoplast Aero Spr) 1 appln PRN PRN EXT 01/24/18 22:30 02/23/18 22:29 Diphenhydramine HCl (Benadryl Cap) 25 mg QID PRN PO 01/25/18 14:00 02/24/18 13:59 Diphenhydramine HCl (Benadryl Inj) 25 mg QID PRN IV 01/25/18 14:00 02/24/18 13:59 Senna (Senokot Tab) 17.2 mg HS PO 01/25/18 22:00 02/24/18 21:59 01/26/18 21:47 17.2 MG Assessment and Plan Problem List Medical Problems: (1) PROM (premature rupture of membranes) Status: Acute Post-Op Day#: 3 Continue Routine Care: Resident Physician Supervision Note: I was present with Dr. Stafford during the history and exam. I discussed the case with the resident and agree with the findings and plan as documented in the note. Any exceptions or clarifications are listed here: BP mildly elevated but no pre-eclampsia symptoms. will have her come to the office in 2 weeks for a BP check Documented By: Yuki Ortiz Elizabeth 37 yo POD3 s/p LCT C/S at 40+2 -AFVSS, Pt doing well resting comfortably with baby in the room -no si/sx of anemia, yesterday Hgb 10.9 from 12.9 pre-op appropriate drop s/p c/ s -Plan is to breast feed -Tolerating regular diet, no n/v -Continue to encourage ambulation -Routine Post-OP care -Provided Discharge Counseling regarding vaginal bleeding, fever, f/u 6 weeks, no heavy lifting for 2-3 weeks, breast feeding, taking pre-giselle vitamin, and nothing in the vagina for 6 weeks (tampons, douching, intercourse) Resident Tracking Resident Involvement: Resident Care Provided Care Provided: Adult Hospital Medicine
[2018-01-27 07:30] VITALS: BP 155/95; PULSE 71; TEMP 36.5
[2018-01-27] MEDS ORDERED: OXYC-57 PO (08:01)
[2018-01-27] MEDS ORDERED: MTR600X PO (08:01)
[2018-01-27] MEDS: FERROUS SULFATE 325 MG TAB PO SCH (08:13)
[2018-01-27] MEDS: PRENATAL VITAMIN TAB PO SCH (08:13)
[2018-01-27 08:26] VITALS: BP_DIAS 95; PULSE 71; TEMP 36.5
--- NOTE | 2018-01-27 15:46 | DISCHARGE SUMMARY ---
ADMITTING DIAGNOSES: 1. Term . 2. Previous section. 3. Premature spontaneous rupture of membranes. DISCHARGE DIAGNOSES: Same. PROCEDURES PERFORMED: Repeat low cervical transverse section. DISCHARGE MEDICATIONS: 1. Percocet 5/325 one to two p.o. q.4-6 h. p.r.n. pain. 2. Motrin 600 mg p.o. q.6 h. p.r.n. pain. ADMISSION HISTORY: Patient is a 37-year-old 3, para 1 with an EDC of 01/23/2018 by first trimester ultrasound at 40+ weeks gestational age, presented with spontaneous rupture of membranes. Patient states membranes ruptured at approximately 1800 hours on the day of delivery with subsequent onset of contractions. Patient's previous was a section for nonreassuring heart rate tracing. Patient was being induced for gestational hypertension. Patient had been considering a during this , and a consent had been signed. This has also been remarkable for an anti-M antibody titer that was found on her initial OB visit. The patient was followed with monthly titers, which were nonexistent. Laboratory values for the show blood type of A positive, antibody positive as above, hepatitis B negative, rubella immune. She had an elevated 1-hour Glucola at 16 weeks, with normal glucose tolerance test at both 16 and 28 weeks. She had a negative cell free DNA screening, a negative maternal serum AFP, and a negative third trimester beta strep culture. PHYSICAL EXAMINATION: GENERAL: Admission physical showed a gravid female, in no acute distress. VITAL SIGNS: Blood pressure 150/90. Weight 158 pounds. HEENT: Unremarkable. NECK: Supple. LUNGS: Clear. CARDIOVASCULAR: Heart with a regular rhythm and rate. GASTROINTESTINAL: Abdomen was gravid, vertex, positive heart tones, estimated weight of 7-1/2 pounds. PELVIC: Examination showed the cervix to be fingertip dilated, 90% effaced, -2 station, with gross rupture of membranes. EXTREMITIES: Exam showed no deep calf tenderness. NEUROLOGIC: Grossly intact. LABORATORY DATA: Admission laboratory values showed an H and H of 12.7 and 36.8. Coagulation profile was within normal limits. LFTs were within normal limits. Creatinine was 0.76. HOSPITAL COURSE: Tracing was category 2 with moderate variability and accelerations. The patient was having mild contractions every 3 minutes but was remote from delivery. Discussed with the patient treatment options including observation with possible augmentation of labor as needed. The patient was very reluctant to have any type of augmentation because of her previous experience with non-reassuring heart rate tracing. After discussing all the pros and cons with the patient, the patient had decided to proceed with a repeat low cervical transverse section. Patient was taken to the operating room where she underwent the above listed procedure. Operative findings showed a viable female with Apgars of 8 and 9, weight of 8 pounds 10 ounces, normal appearing tubes and ovaries bilaterally. Postoperatively, the patient did well. Pineda catheter was removed on the first postoperative day. H and H came back at 11.0 and 31.7. The patient continued to do well, and by the third postoperative day, was tolerating a regular diet. She had mildly elevated blood pressures with diastolics ranging in the 90s but no other overt signs of preeclampsia. Patient requested discharge on the 3rd postoperative day, and she was given a prescription for the medications listed as above. She is going to follow up in the office in 2 weeks time for a blood pressure check, but as always, she has been instructed to call with any questions, problems, or difficulties.
== END 2018-01-27 10:07 | disposition home or self-care (01) | DRG 766 ==
LOC: C.OPB 19:06 → C.LD 19:06 → C.OPB 21:21 → C.LD 21:22 → C.OBG 01-25 01:08
PROVIDERS: ADMIT Obstetrics & Gynecology; ATTEND Obstetrics & Gynecology
PROC: 10D00Z1 Extraction of Products of Conception, Low, Open Approach (ICD-10-PCS; principal; 2018-01-24 20:51)
DX: O34.211 Maternal care for low transverse scar from previous cesarean delivery (principal); O42.02 Full-term premature rupture of membranes, onset of labor within 24 hours of rupture; Z3A.40 40 weeks gestation of pregnancy; Z37.0 Single live birth

== ENCOUNTER → 2018-01-29 | Outpatient (CLI) | payer OTHER ==
[~2018-01-29] MED LIST changes: +OXYC-57 PO
[2018-01-29 12:27] LABS: BASO % 0.2 %; BASO ABS # 0.03 K/uL (0-0.2); EOS % 2.8 %; EOS ABS # 0.37 K/uL (0-0.5); HEMATOCRIT 38.3 % (37-47); IG# 0.06 K/uL (0.00-0.02); LYMPH % 15.7 %; LYMPH ABS # 2.09 K/uL (1.2-3.4); MEAN CORPUSCULAR HEMOGLOBIN 29.9 pg (25-34); MEAN PLATELET VOLUME 11.1 fL (7.4-10.4); MONO % 4.4 %; MONO ABS # 0.58 K/uL (0.11-0.59); NEUT % 76.4 %; NEUT ABS # 10.18 K/uL (1.4-6.5); PLATELET COUNT 256 K/uL (130-400); RED CELL DISTRIBUTION WIDTH CV 13.8 % (11.5-14.5); RED CELL DISTRIBUTION WIDTH SD 44.8 fL (36.4-46.3); WHITE BLOOD COUNT 13.31 K/uL (4.8-10.8)
[2018-01-29 12:29] LABS: MEAN CORPUSCULAR HGB CONC 33.9 g/dl (32-36)
[2018-01-29 12:55] LABS: ALBUMIN 2.7 gm/dl (3.4-5.0); ALKALINE PHOSPHATASE 126 U/L (45-117); ALT/SGPT 28 U/L (12-78); AST/SGOT 25 U/L (15-37); BLOOD UREA NITROGEN 16 mg/dl (7-18); CALCIUM 8.3 mg/dl (8.5-10.1); CARBON DIOXIDE 23 mmol/L (21-32); CREATININE 0.68 mg/dl (0.60-1.20); GLUCOSE 137 mg/dl (70-99); POTASSIUM 3.8 mmol/L (3.5-5.1); SODIUM 139 mmol/L (136-145); URIC ACID 6.3 mg/dl (2.6-7.2)
== END | disposition home or self-care (01) ==
LOC: C.LAB1850 11:53
PROVIDERS: ATTEND Obstetrics & Gynecology
DX: O13.9 Gestational [pregnancy-induced] hypertension without significant proteinuria, unspecified trimester (principal); Z3A.00 Weeks of gestation of pregnancy not specified